=== PATIENT | female | born 1980 | race Caucasian/White ===

== ENCOUNTER 2016-06-23 18:03 | Emergency (ER) | payer OTHER ==
[2016-06-23 18:33] VITALS: BP 108/58; PULSE 96; RESP 18; TEMP 98.3
--- NOTE | 2016-06-23 19:14 | ED ---
Skin/Abscess/FB HPI - General Chief complaint: Skin/Abscess/Foreign Body Stated complaint: abcess Time Seen by Provider: 06/23/16 18:56 Source: patient, RN notes reviewed Mode of arrival: ambulatory Limitations: no limitations - History of Present Illness Initial comments: Patient is a 36-year-old female with tingling of one week of increasing size of her left axilla abscess. Patient reports that she has had them there before. She reports that she has no history of MRSA. She states that usually when she has these they drain and put her on Keflex. Patient states that has became increasingly painful with any movement of her arm. She denies any superficial redness over the armpit. Patient denies any nausea, vomiting, chest pain, shortness of breath, fevers, chills, headaches. - Related Data Home Medications Medication Instructions Recorded Confirmed Pnv with Ca,No.72/Iron/FA 1 tab PO DAILY 03/19/16 03/28/16 [ Plus Tablet] Albuterol Inhaler [Ventolin Hfa 2 puff INHALATION RT-Q6H PRN 03/28/16 03/28/16 Inhaler] Previous Rx's Medication Instructions Recorded Acetaminophen-Codeine 300-30mg 1 tab PO Q4H PRN #15 tablet 06/23/16 [Tylenol #3] Cephalexin [Keflex] 500 mg PO Q6HR #40 cap 06/23/16 Allergies Allergy/AdvReac Type Severity Reaction Status Date / Time No Known Allergies Allergy Verified 06/23/16 18:33 Review of Systems ROS Statement: Those systems with pertinent positive or pertinent negative responses have been documented in the HPI. ROS Other: All systems not noted in ROS Statement are negative. Past Medical History Past Medical History: No Reported History, Pneumonia, Thyroid Disorder History of Any Multi-Drug Resistant Organisms: None Reported Past Surgical History: Section Past Psychological History: ADD/ADHD, Anxiety, Depression, No Psychological Hx Reported Smoking Status: Never smoker Past Alcohol Use History: None Reported Past Drug Use History: Heroin, Marijuana, Methamphetamine, None Reported, Opiates General Exam - General Exam Comments Initial Comments: Pleasant 36-year-old female. No acute distress. Limitations: no limitations General appearance: alert, in no apparent distress Head exam: Present: atraumatic, normocephalic, normal inspection Eye exam: Present: normal appearance, PERRL, EOMI. Absent: scleral icterus, conjunctival injection, periorbital swelling ENT exam: Present: normal exam, mucous membranes moist Neck exam: Present: normal inspection. Absent: tenderness, meningismus, lymphadenopathy Respiratory exam: Present: normal lung sounds bilaterally. Absent: respiratory distress, wheezes, rales, rhonchi, stridor Cardiovascular Exam: Present: regular rate, normal rhythm, normal heart sounds. Absent: systolic murmur, diastolic murmur, rubs, gallop, clicks GI/Abdominal exam: Present: soft, normal bowel sounds. Absent: distended, tenderness, guarding, rebound, rigid Extremities exam: Present: normal inspection, full ROM, normal capillary refill. Absent: tenderness, pedal edema, joint swelling, calf tenderness Back exam: Present: normal inspection Neurological exam: Present: alert, oriented X3, CN II-XII intact Psychiatric exam: Present: normal affect, normal mood Skin exam: Present: warm, dry, intact, normal color, other ( left Axilla abscess. 3 cm.). Absent: rash Course Vital Signs 06/23/16 18:31 Temperature 98.3 F Pulse Rate 96 Respiratory 18 Rate Blood Pressure 108/58 O2 Sat by Pulse 100 Oximetry Procedures - Incision & Drainage Site: upper extremity (Left axilla) Size (cm): 3 Anesthetic Used: benzocaine 0.25% Amount (mLs): 8 I&D Cleaning Method: Betadine Sterile Field Used?: Yes Scalpel Used: #11 I&D Drainage Obtained: Pus, Blood Packing: Iodoform Culture Obtained?: Yes Patient Tolerated Procedure: well, no complications Medical Decision Making - Medical Decision Making Patient is a 36-year-old feel a chief complaint of a left axilla abscess for approximately one week. She's had them in the past before. She states that she 's no history of MRSA and Keflex usually helps ear infections. She states that she cannot see a primary care doctor. Patient abscess was incised and drained and packed with iodoform. Significant amount of pus was obtained and culture was also obtained. Patient will start on Keflex. Patient understands the treatment plan and finish entire antibiotics. Patient will be given pain medication. Patient understands treatment plan will comply. Return parameters were discussed. Disposition Clinical Impression: Abscess of left axilla Disposition: HOME SELF-CARE Condition: Good Instructions: Abscess Incision and Drainage (ED) Additional Instructions: Remove Packing in 48 hours. Return to the emergency department if any alarming signs or symptoms occur. Finished entire antibiotic prescription. Prescriptions: Acetaminophen-Codeine 300-30mg [Tylenol #3] 1 tab PO Q4H PRN #15 tablet PRN Reason: Pain Cephalexin [Keflex] 500 mg PO Q6HR #40 cap Referrals: None,Stated [Primary Care Provider] - 1-2 days Time of Disposition: 19:11
== END 2016-06-23 19:40 | disposition home or self-care (01) ==
LOC: EC 18:03
DX: L02.412 Cutaneous abscess of left axilla (principal); Z79.899 Other long term (current) drug therapy
CPT/HCPCS: 10060; 87070; 87077; 87186; 87205; 99283

== ENCOUNTER 2016-07-10 19:58 | Emergency (ER) | payer OTHER ==
[2016-07-10 20:08] VITALS: RESP 18
--- NOTE | 2016-07-10 20:13 | ED ---
Overdose HPI - General Chief Complaint: Overdose Stated Complaint: Poss Overdose Time Seen by Provider: 07/10/16 19:58 Source: patient, EMS, RN notes reviewed Mode of arrival: EMS Limitations: no limitations - History of Present Illness Initial Comments: This is a 36-year-old female who states she started heroin just prior to admission. Family called EMS fire rescue gave the patient 2 mg of intranasal Narcan. Patient did become combative and did wake up but time she arrived here she was under control. She denies any nausea vomiting fevers chills sweats she states she had been off heroin for about 4 months but did relapse. This was not intentional overdose. MD Complaint: accidental overdose - Related Data Home Medications Medication Instructions Recorded Confirmed No Known Home Medications [No 07/10/16 07/10/16 Known Home Medications] Allergies Allergy/AdvReac Type Severity Reaction Status Date / Time No Known Allergies Allergy Verified 07/10/16 20:16 Review of Systems ROS Statement: Those systems with pertinent positive or pertinent negative responses have been documented in the HPI. ROS Other: All systems not noted in ROS Statement are negative. Past Medical History Past Medical History: No Reported History, Pneumonia, Thyroid Disorder History of Any Multi-Drug Resistant Organisms: MRSA Date of last positivie culture/infection: 06/23/16 MDRO Source:: Axilla Past Surgical History: Section Past Psychological History: ADD/ADHD, Anxiety, Depression, No Psychological Hx Reported Smoking Status: Never smoker Past Alcohol Use History: None Reported Past Drug Use History: Heroin, Marijuana, Methamphetamine, None Reported, Opiates General Exam - General Exam Comments Initial Comments: This is a well-developed well-nourished awake alert oriented 3 female Limitations: no limitations General appearance: alert, in no apparent distress Head exam: Present: atraumatic, normocephalic, normal inspection Eye exam: Present: normal appearance, PERRL, EOMI. Absent: scleral icterus, conjunctival injection, periorbital swelling ENT exam: Present: normal exam, mucous membranes moist Neck exam: Present: normal inspection. Absent: tenderness, meningismus, lymphadenopathy Respiratory exam: Present: normal lung sounds bilaterally. Absent: respiratory distress, wheezes, rales, rhonchi, stridor Cardiovascular Exam: Present: normal rhythm, tachycardia, normal heart sounds. Absent: systolic murmur, diastolic murmur, rubs, gallop, clicks GI/Abdominal exam: Present: soft, normal bowel sounds. Absent: distended, tenderness, guarding, rebound, rigid Extremities exam: Present: normal inspection, full ROM, normal capillary refill. Absent: tenderness, pedal edema, joint swelling, calf tenderness Back exam: Present: normal inspection Neurological exam: Present: alert, oriented X3, CN II-XII intact Psychiatric exam: Present: normal affect, normal mood Skin exam: Present: warm, dry, intact, normal color. Absent: rash Course Vital Signs 07/10/16 07/10/16 07/10/16 20:06 20:18 21:05 Temperature 98.4 F 98.0 F Pulse Rate 135 H 97 105 H Respiratory 18 18 18 Rate Blood Pressure 116/57 116/81 O2 Sat by Pulse 99 99 Oximetry Medical Decision Making - Medical Decision Making I did reveal patient multiple occasions she is awake alert oriented history I did caution her about using heroin future she will be discharged - EKG Data -: EKG Interpreted by Me EKG shows normal: sinus rhythm (Sinus rhythm a rate of 117. Interval 144 QRS duration 90 QT/QTC of 320/[address]-T wave changes) Disposition Clinical Impression: Heroin overdose Disposition: HOME SELF-CARE Condition: Good Instructions: Polysubstance Abuse (ED), Narcotic Abuse (ED)
[2016-07-10] MEDS ORDERED: ACETAMINOPHEN TAB 325 MG TAB PO STA (20:28)
[2016-07-10] MEDS ORDERED: ONDANSETRON 4 MG/2 ML VIAL IVP STA (20:35)
[2016-07-10 21:06] VITALS: BP 116/81; PULSE 105; TEMP 98
== END 2016-07-10 21:13 | disposition home or self-care (01) ==
LOC: EC 19:58
DX: T40.1X1A Poisoning by heroin, accidental (unintentional), initial encounter (principal); Z86.14 Personal history of Methicillin resistant Staphylococcus aureus infection
CPT/HCPCS: 99284; 96374; 93005; J2405

== ENCOUNTER 2017-09-10 16:12 | Emergency (ER) | payer OTHER ==
[2017-09-10 16:18] VITALS: BP 107/59; PULSE 70; RESP 20; TEMP 98
--- NOTE | 2017-09-10 16:39 | ED ---
ENT HPI - General Chief complaint: Dental/Oral Stated complaint: Broken tooth Time Seen by Provider: 09/10/17 16:32 Source: patient Mode of arrival: ambulatory Limitations: no limitations - History of Present Illness Initial comments: 37-year-old female presents with dental pain that's been ongoing for last few days. Patient noticed increased swelling today on the left lower face. Patient states she's had a broken tooth for about a year but is never given her this much problem. Patient hasn't recorded a fever but did feel slight sweats and chills. Patient denies any ear pain or throat pain on that side no difficulty swallowing. Patient has not seen a dentist yet for this issue. MD complaint: tooth pain - Related Data Previous Rx's Medication Instructions Recorded Ibuprofen 600 mg PO Q8HR PRN #30 tablet 09/10/17 Penicillin V Potassium [Pen Vee K] 500 mg PO Q6HR #28 tablet 09/10/17 Allergies Allergy/AdvReac Type Severity Reaction Status Date / Time No Known Allergies Allergy Verified 09/10/17 16:18 Review of Systems ROS Statement: Those systems with pertinent positive or pertinent negative responses have been documented in the HPI. ROS Other: All systems not noted in ROS Statement are negative. Constitutional: Reports: chills. Denies: fever ENT: Reports: dental pain. Denies: ear pain, throat pain Respiratory: Denies: cough Gastrointestinal: Denies: nausea, vomiting Past Medical History Past Medical History: Pneumonia, Thyroid Disorder History of Any Multi-Drug Resistant Organisms: MRSA Date of last positivie culture/infection: 06/23/16 MDRO Source:: Axilla Past Surgical History: Section Past Psychological History: ADD/ADHD, Anxiety, Depression Smoking Status: Never smoker Past Alcohol Use History: None Reported Past Drug Use History: Heroin, Marijuana, Methamphetamine, None Reported, Opiates General Exam Limitations: no limitations General appearance: alert, in no apparent distress Head exam: Present: atraumatic, normocephalic, normal inspection Eye exam: Present: normal appearance, PERRL, EOMI. Absent: scleral icterus, conjunctival injection, periorbital swelling Pupils: Present: normal accommodation ENT exam: Present: mucous membranes moist, other (swollen, tender to left lower jaw/face, + broken tooth #20, tender ) Course Vital Signs 09/10/17 16:16 Temperature 98.0 F Pulse Rate 70 Respiratory 20 Rate Blood Pressure 107/59 O2 Sat by Pulse 99 Oximetry Medical Decision Making - Medical Decision Making She will need an oral antibiotic and to follow up with dental specialist. Patient aware to also take prescribed Motrin for pain and swelling as well. Patient have close follow-up with dentist or oral surgeon. If not improving or worsen patient to return to the ER for further evaluation and treatment. Patient to finish her antibiotics Disposition Clinical Impression: Dental abscess, Toothache, Facial swelling Disposition: HOME SELF-CARE Condition: Good Instructions: Dental Abscess (ED), Toothache (ED) Prescriptions: Ibuprofen 600 mg PO Q8HR PRN #30 tablet PRN Reason: Pain Penicillin V Potassium [Pen Vee K] 500 mg PO Q6HR #28 tablet Is patient prescribed a controlled substance at d/c from ED?: No Referrals: None,Stated [Primary Care Provider] - 1-2 days Umair Almonte DDS [STAFF PHYSICIAN] - 1-2 days Time of Disposition: 16:38
== END 2017-09-10 17:00 | disposition home or self-care (01) ==
LOC: EC 16:12
DX: K04.7 Periapical abscess without sinus (principal); S02.5XXA Fracture of tooth (traumatic), initial encounter for closed fracture; Z86.14 Personal history of Methicillin resistant Staphylococcus aureus infection
CPT/HCPCS: 99282

== ENCOUNTER → 2018-01-18 | Outpatient (CLI) | payer OTHER ==
[2018-01-18 17:52] LABS: Basophils % (A) 0 %; Eosinophils # (A) 0.1 k/uL (0-0.7); Eosinophils % (A) 2 %; HCT 39.7 % (34.0-46.0); HGB 12.7 gm/dL (11.4-16.0); Lymphocytes # (A) 1.4 k/uL (1.0-4.8); Lymphocytes % (A) 26 %; MCH 29.5 pg (25.0-35.0); MCV 91.9 fL (80.0-100.0); Mean Platelet Volume 8.9; Monocytes # (A) 0.3 k/uL (0-1.0); Monocytes % (A) 5 %; Neutrophils # (A) 3.6 k/uL (1.3-7.7); Neutrophils % (A) 65 %; Platelet Count 161 k/uL (150-450); RBC 4.32 m/uL (3.80-5.40); RDW 13.3 % (11.5-15.5); WBC 5.6 k/uL (3.8-10.6)
[2018-01-18 18:48] LABS: Albumin 4.1 g/dL (3.5-5.0); Bilirubin, Delta 0.2 mg/dL (0.0-0.2); Bilirubin,Unconjugated 0.4 mg/dL (0.0-1.1); Total Bilirubin 0.6 mg/dL (0.2-1.3); Total Protein 7.5 g/dL (6.3-8.2)
[2018-01-19 04:22] LABS: Hepatitis A Antibody IgM Non-Reactive (Non-Reactive); Hepatitis B Core IgM Non-Reactive (Non-Reactive)
== END | disposition home or self-care (01) ==
LOC: LABWHC1 16:12
PROVIDERS: ATTEND Physician Assistant
DX: B18.2 Chronic viral hepatitis C (principal); Z20.5 Contact with and (suspected) exposure to viral hepatitis
CPT/HCPCS: 36415; 80074; 80076; 85025; 87522

== ENCOUNTER → 2018-06-27 | Outpatient (CLI) | payer OTHER ==
[2018-06-27 17:32] LABS: Basophils % (A) 0 %; Eosinophils # (A) 0.1 k/uL (0-0.7); Eosinophils % (A) 2 %; HCT 39.7 % (34.0-46.0); HGB 12.4 gm/dL (11.4-16.0); Lymphocytes # (A) 1.6 k/uL (1.0-4.8); Lymphocytes % (A) 31 %; MCH 28.8 pg (25.0-35.0); MCHC 31.3 g/dL (31.0-37.0); MCV 91.9 fL (80.0-100.0); Mean Platelet Volume 8.8; Monocytes # (A) 0.2 k/uL (0-1.0); Monocytes % (A) 4 %; Neutrophils # (A) 3.2 k/uL (1.3-7.7); Neutrophils % (A) 61 %; Platelet Count 198 k/uL (150-450); RBC 4.32 m/uL (3.80-5.40); RDW 13.5 % (11.5-15.5); WBC 5.3 k/uL (3.8-10.6)
[2018-06-27 17:39] LABS: Prothrombin Time 10.8 sec (9.0-12.0)
[2018-06-28 02:04] LABS: Albumin 4.3 g/dL (3.80-4.90); Albumin/Globulin Ratio 1.72 (1.60-3.17); Bilirubin, Conjugated 0.2 mg/dL (0.20-0.40); Bilirubin,Unconjugated 0.5 mg/dL; Globulin 2.5 g/dL (1.6-3.3); Total Bilirubin 0.7 mg/dL (0.2-1.2); Total Protein 6.8 g/dL (6.2-8.2)
[2018-06-28 15:21] LABS: Hepatits C Virus RNA Not detected (Not detected); Hepatits C Virus RNA, Quant <12 IU/mL (<12); LOG HCV IU/mL <1.08 (<1.08)
== END | disposition home or self-care (01) ==
LOC: LABWHC1 17:13
PROVIDERS: ATTEND Physician Assistant
DX: B18.2 Chronic viral hepatitis C (principal)
CPT/HCPCS: 36415; 80076; 85025; 85610; 87522

== ENCOUNTER → 2020-07-22 | Outpatient (CLI) | payer OTHER | END | disposition home or self-care (01) | LOC: LABWHC1 15:36 | PROVIDERS: ATTEND Family Medicine | DX: Z20.822 Contact with and (suspected) exposure to COVID-19 (principal) | CPT/HCPCS: U0003; C9803 ==

== ENCOUNTER → 2020-08-25 | Outpatient (CLI) | payer BC, OTHER | END | disposition home or self-care (01) | LOC: LABWHC1 08:31 | PROVIDERS: ATTEND Nurse Practitioner | DX: U07.1 COVID-19 (principal) | CPT/HCPCS: U0003; C9803; U0005 ==

== ENCOUNTER 2021-03-27 18:48 | Emergency (ER) | payer OTHER ==
[2021-03-27] MEDS ORDERED: LORazepam 2 MG/ML INJ IM STA (19:03)
[2021-03-27] MEDS ORDERED: LORazepam 2 MG/ML INJ IV STA ×3 (19:03→22:37)
[2021-03-27] MEDS ORDERED: KETAMINE 50 MG/ML 10 ML VIAL IM ONE (19:23)
[2021-03-27] MEDS ORDERED: SODIUM CHLORIDE 0.9% 1,000 ML IV STA ×2 (19:38→21:52)
--- NOTE | 2021-03-27 20:00 | ED ---
General Adult HPI - General Source: police, EMS, RN notes reviewed Mode of arrival: EMS Limitations: no limitations <Araceli Loco - Last Filed: 03/28/21 00:17> <Chintan Jang - Last Filed: 03/28/21 10:47> <Jeramie Malloy - Last Filed: 03/29/21 02:24> - General Chief complaint: Overdose Stated complaint: Overdose Time Seen by Provider: 03/27/21 19:02 - History of Present Illness Initial comments: 40-year-old female presents to the emergency department via EMS from home for evaluation of erratic behavior. Per [employer] at bedside, patient's significant other called EMS due to her erratic behavior occurring 2 hours after ingesting half of a large chocolate bar containing 200 mg THC. Upon arrival, patient is unable to answer questions or cooperate. [employer] remains present to assist. They state there was no known trauma or injury prior to arrival. (Araceli Loco) - Related Data Home Medications Medication Instructions Recorded Confirmed Albuterol Sulfate [Proair Hfa] 2 puff INHALATION RT-QID PRN 03/27/21 03/27/21 QUEtiapine [SEROquel] 50 mg PO HS 03/27/21 03/27/21 Venlafaxine HCl ER [Effexor Xr] 37.5 mg PO DAILY 03/27/21 03/27/21 Allergies Allergy/AdvReac Type Severity Reaction Status Date / Time No Known Allergies Allergy Verified 03/27/21 22:36 Review of Systems ROS Other: All systems not noted in ROS Statement are negative. <Araceli Loco - Last Filed: 03/28/21 00:17> ROS Other: All systems not noted in ROS Statement are negative. <Chintan Jang - Last Filed: 03/28/21 10:47> ROS Other: All systems not noted in ROS Statement are negative. <Jeramie aMlloy - Last Filed: 03/29/21 02:24> ROS Statement: Those systems with pertinent positive or pertinent negative responses have been documented in the HPI. Past Medical History Past Medical History: Pneumonia, Thyroid Disorder History of Any Multi-Drug Resistant Organisms: MRSA Date of last positivie culture/infection: 3/16/17 MDRO Source:: [place] Past Surgical History: Section Past Psychological History: ADD/ADHD, Anxiety, Depression Smoking Status: Never smoker Past Alcohol Use History: None Reported Past Drug Use History: Heroin, Marijuana, Methamphetamine, None Reported, Opiates <Araceli Loco - Last Filed: 03/28/21 00:17> General Exam Limitations: altered mental status General appearance: alert, appears intoxicated, other (This is a 40-year-old female who presents to the emergency department awake and alert, but unable to answer any questions) Head exam: Present: atraumatic, normocephalic, normal inspection Eye exam: Present: normal appearance, PERRL. Absent: scleral icterus, conjunctival injection, periorbital swelling ENT exam: Present: mucous membranes moist Respiratory exam: Present: normal lung sounds bilaterally. Absent: respiratory distress, wheezes, rales, rhonchi, stridor Cardiovascular Exam: Present: regular rate, tachycardia, normal heart sounds GI/Abdominal exam: Present: soft, normal bowel sounds. Absent: distended, rigid Extremities exam: Present: other (evidence of contusions in various stages of healing noted to bilateral forearms concerning for injection sites) Expanded Neurological exam: Present: protecting the airway Patient oriented to: Present: person. Absent: place, time Speech: Present: fluid speech Eye Response: (4) open spontaneously Motor Response: (5) localizes to pain Verbal Response: (4) confused conversation [place]roberts Total: 13 (patient will sporadically follow commands, though not consistently) Psychiatric exam: Present: agitated Skin exam: Present: warm, intact (skin is flushed), other <Araceli Loco - Last Filed: 03/28/21 00:17> Course <Araceli Loco - Last Filed: 03/28/21 00:17> Vital Signs 03/27/21 03/27/21 03/28/21 19:21 20:22 01:47 Temperature 98.1 F Pulse Rate 94 126 H 104 H Respiratory 22 20 14 Rate Blood Pressure 118/65 124/81 95/56 O2 Sat by Pulse 93 L 97 99 Oximetry 03/28/21 03/28/21 03/28/21 04:31 08:09 10:04 Temperature 98.1 F Pulse Rate 97 90 93 Respiratory 18 18 14 Rate Blood Pressure 98/51 99/47 98/45 O2 Sat by Pulse 98 97 98 Oximetry 03/28/21 11:06 Temperature 98.1 F Pulse Rate 93 Respiratory 14 Rate Blood Pressure 98/45 O2 Sat by Pulse 98 Oximetry - Reevaluation(s) Reevaluation #1: 03/27/21 19:07 Unable to assess patient or obtain history due to erratic behavior and difficulty following commands. Home medications include Flexeril and Effexor as provided per [employer]. 03/27/21 19:30 260 mg of ketamine given IM under the supervision of Dr. Ramirez at bedside. 03/27/21 23:12 Patient appears to be resting calmly at this time. Sitter remains at bedside. Vital signs are stable. 03/28/21 00:00 Patient continues to have episodes in which she becomes agitated and thrashes around in the bed. She is unable to follow commands or be redirected. She is observed pulling at IV line, Ramos catheter, and quality assurance monitor therefore soft limb restraints will be ordered as medically necessary. 03/28/21 00:30 (Araceli Loco) EKG Findings - EKG Comments: EKG Findings:: EKG is sinus tachycardia 137 IN 166 QRS 74 QTc 413 <Jeramie Malloy - Last Filed: 03/29/21 02:24> Medical Decision Making - Lab Data Result diagrams: 03/27/21 20:00 03/27/21 20:00 - EKG Data EKG shows normal: sinus rhythm Rate: tachycardia - Radiology Data Radiology results: report reviewed, image reviewed <Araceli Loco - Last Filed: 03/28/21 00:17> - Lab Data Result diagrams: 03/27/21 20:00 03/27/21 20:00 <Chintan Jang - Last Filed: 03/28/21 10:47> - Lab Data Result diagrams: 03/27/21 20:00 03/27/21 20:00 <Jeramie Malloy - Last Filed: 03/29/21 02:24> - Medical Decision Making This is a 40-year-old female who presents to the emergency department via EMS accompanied by [employer] for evaluation of erratic behavior. Per EMS, patient's behavior began a couple hours after ingesting half of the chocolate bar with 200 mg of THC. The patient's significant other called EMS. Upon arrival, patient is thrashing about in the bed requiring the assistance of several individuals. Patient is aware that she is acting erratically, however states she is unable to calm herself or control her behavior. Prior to arrival patient was given Versed via EMS with no change. Patient given Ativan, ketamine, and Benadryl while present in the emergency department. She was hydrated with 2 L of IV fluids. Soft restraints were required to keep patient safe from harm. Laboratory studies were reviewed. CK is elevated at 488. Urinalysis significant for WBCs and leukocyte esterase along with trace blood. Drug screen is positive for TCA, amphetamines, methamphetamines, and THC. Chest x-ray was obtained and shows mild pulmonary interstitial edema. Patient will remain in the emergency department for further evaluation and treatment. This patient's care was assumed by my attending Dr. Malloy. ([facility]) - Lab Data Lab Results 03/27/21 03/27/21 03/27/21 Range/Units 20:00 20:00 20:00 WBC 10.9 H (3.8-10.6) k/uL RBC 3.95 (3.80-5.40) m/uL Hgb 12.1 (11.4-16.0) gm/dL Hct 35.0 (34.0-46.0) % MCV 88.6 (80.0-100.0) fL MCH 30.7 (25.0-35.0) pg MCHC 34.6 (31.0-37.0) g/dL RDW 12.6 (11.5-15.5) % Plt Count 190 (150-450) k/uL MPV 9.8 Neutrophils % 81 % Lymphocytes % 12 % Monocytes % 4 % Eosinophils % 1 % Basophils % 0 % Neutrophils # 8.8 H (1.3-7.7) k/uL Lymphocytes # 1.3 (1.0-4.8) k/uL Monocytes # 0.5 (0-1.0) k/uL Eosinophils # 0.1 (0-0.7) k/uL Basophils # 0.0 (0-0.2) k/uL Sodium 137 (137-145) mmol/L Potassium 4.3 (3.5-5.1) mmol/L Chloride 105 (98-107) mmol/L Carbon Dioxide 20 L (22-30) mmol/L Anion Gap 12 mmol/L BUN 15 (7-17) mg/dL Creatinine 0.95 (0.52-1.04) mg/dL Est GFR (CKD-EPI)AfAm 88 (>60 ml/min/1.73 sqM) Est GFR (CKD-EPI)NonAf 77 (>60 ml/min/1.73 sqM) Glucose 76 (74-99) mg/dL Calcium 9.0 (8.4-10.2) mg/dL Total Bilirubin 0.7 (0.2-1.3) mg/dL AST 32 (14-36) U/L ALT 13 (4-34) U/L Alkaline Phosphatase 60 (38-126) U/L Creatine Kinase 488 H (30-135) U/L Troponin I (0.000-0.034) ng/mL Total Protein 7.2 (6.3-8.2) g/dL Albumin 4.4 (3.5-5.0) g/dL Urine Color Urine Appearance (Clear) Urine pH (5.0-8.0) Ur Specific Buras (1.001-1.035) Urine Protein (Negative) Urine Glucose (UA) (Negative) Urine Ketones (Negative) Urine Blood (Negative) Urine Nitrite (Negative) Urine Bilirubin (Negative) Urine Urobilinogen (<2.0) mg/dL Ur Leukocyte Esterase (Negative) Urine RBC (0-5) /hpf Urine WBC (0-5) /hpf Ur Squamous Epith Cells (0-4) /hpf Amorphous Sediment (None) /hpf Urine Bacteria (None) /hpf Hyaline Casts (0-2) /lpf Urine Mucus (None) /hpf Urine HCG, Qual (Not Detectd) Salicylates <1.0 mg/dL Urine Opiates Screen Not Detected (NotDetected) Ur Oxycodone Screen Not Detected (NotDetected) Urine Methadone Screen Not Detected (NotDetected) Ur Propoxyphene Screen Not Detected (NotDetected) Acetaminophen <10.0 ug/mL Ur Barbiturates Screen Not Detected (NotDetected) U Tricyclic Antidepress Detected H (NotDetected) Ur Phencyclidine Scrn Not Detected (NotDetected) Ur Amphetamines Screen Detected H (NotDetected) U Methamphetamines Scrn Detected H (NotDetected) U Benzodiazepines Scrn Not Detected (NotDetected) Urine Cocaine Screen Not Detected (NotDetected) U Marijuana (THC) Screen Detected H (NotDetected) Serum Alcohol <10 mg/dL 03/27/21 03/27/21 03/27/21 Range/Units 20:00 20:00 20:00 WBC (3.8-10.6) k/uL RBC (3.80-5.40) m/uL Hgb (11.4-16.0) gm/dL Hct (34.0-46.0) % MCV (80.0-100.0) fL MCH (25.0-35.0) pg MCHC (31.0-37.0) g/dL RDW (11.5-15.5) % Plt Count (150-450) k/uL MPV Neutrophils % % Lymphocytes % % Monocytes % % Eosinophils % % Basophils % % Neutrophils # (1.3-7.7) k/uL Lymphocytes # (1.0-4.8) k/uL Monocytes # (0-1.0) k/uL Eosinophils # (0-0.7) k/uL Basophils # (0-0.2) k/uL Sodium (137-145) mmol/L Potassium (3.5-5.1) mmol/L Chloride (98-107) mmol/L Carbon Dioxide (22-30) mmol/L Anion Gap mmol/L BUN (7-17) mg/dL Creatinine (0.52-1.04) mg/dL Est GFR (CKD-EPI)AfAm (>60 ml/min/1.73 sqM) Est GFR (CKD-EPI)NonAf (>60 ml/min/1.73 sqM) Glucose (74-99) mg/dL Calcium (8.4-10.2) mg/dL Total Bilirubin (0.2-1.3) mg/dL AST (14-36) U/L ALT (4-34) U/L Alkaline Phosphatase (38-126) U/L Creatine Kinase (30-135) U/L Troponin I <0.012 (0.000-0.034) ng/mL Total Protein (6.3-8.2) g/dL Albumin (3.5-5.0) g/dL Urine Color Yellow Urine Appearance Cloudy H (Clear) Urine pH 6.0 (5.0-8.0) Ur Specific [place] 1.025 (1.001-1.035) Urine Protein 1+ H (Negative) Urine Glucose (UA) Negative (Negative) Urine Ketones Negative (Negative) Urine Blood Trace H (Negative) Urine Nitrite Negative (Negative) Urine Bilirubin Negative (Negative) Urine Urobilinogen <2.0 (<2.0) mg/dL Ur Leukocyte Esterase Large H (Negative) Urine RBC 18 H (0-5) /hpf Urine WBC 65 H (0-5) /hpf Ur Squamous Epith Cells 25 H (0-4) /hpf Amorphous Sediment Rare H (None) /hpf Urine Bacteria Occasional H (None) /hpf Hyaline Casts 2 (0-2) /lpf Urine Mucus Many H (None) /hpf Urine HCG, Qual Not Detected (Not Detectd) Salicylates mg/dL Urine Opiates Screen (NotDetected) Ur Oxycodone Screen (NotDetected) Urine Methadone Screen (NotDetected) Ur Propoxyphene Screen (NotDetected) Acetaminophen ug/mL Ur Barbiturates Screen (NotDetected) U Tricyclic Antidepress (NotDetected) Ur Phencyclidine Scrn (NotDetected) Ur Amphetamines Screen (NotDetected) U Methamphetamines Scrn (NotDetected) U Benzodiazepines Scrn (NotDetected) Urine Cocaine Screen (NotDetected) U Marijuana (THC) Screen (NotDetected) Serum Alcohol mg/dL - EKG Data EKG Comments: EKG was obtained at 1938 and shows ventricular rate 137, IN interval 166, QRS duration 74, QT/QTC 274/413. Sinus tachycardia with occasional PVCs. Nonspecific ST and T wave abnormality. (Araceli Loco) - Radiology Data Chest x-ray was obtained and shows mild pulmonary interstitial edema which is new compared to old exam. (Araceli Loco) Disposition <Araceli Loco - Last Filed: 03/28/21 00:17> <Chintan Jang - Last Filed: 03/28/21 10:47> Is patient prescribed a controlled substance at d/c from ED?: No <Jeramie Malloy - Last Filed: 03/29/21 02:24> Clinical Impression: Agitation Disposition: HOME SELF-CARE Condition: Fair Instructions (If sedation given, give patient instructions): Methamphetamine Abuse (ED) Referrals: Estefani Ruelas NPC [Primary Care Provider] - 1-2 days
[2021-03-27] MEDS ORDERED: diphenhydrAMINE 50 MG/ML 1 ML VIAL IVP STA ×2 (20:03→20:23)
[2021-03-27 20:20] LABS: Amorphous Sediment,Urine Rare /hpf; Appearance,Urine Cloudy (Clear); Bacteria,Urine Occasional /hpf; Bilirubin,Urine Negative (Negative); Blood,Urine Trace (Negative); Color,Urine Yellow; Glucose,Urine (UA) Negative (Negative); Hyaline Casts,Urine 2 /lpf (0-2); Ketones,Urine Negative (Negative); Leukocyte Esterase,Urine Large (Negative); Mucus,Urine Many /hpf; Nitrite,Urine Negative (Negative); Protein,Urine 1+ (Negative); RBC,Urine 18 /hpf (0-5); Specific Gravity,Urine 1.025 (1.001-1.035); Squamous Epithelial Cell,Urine 25 /hpf (0-4); Urobilinogen,Urine <2.0 mg/dL (<2.0); WBC,Urine 65 /hpf (0-5)
[2021-03-27 20:21] LABS: ALT 13 U/L (4-34); AST 32 U/L (14-36); Acetaminophen <10.0 ug/mL; African American GFR (CKD) 88 (>60 ml/min/1.73 sqM); Albumin 4.4 g/dL (3.5-5.0); Alcohol <10 mg/dL; Alkaline Phosphatase 60 U/L (38-126); Anion Gap 12 mmol/L; Blood Urea Nitrogen 15 mg/dL (7-17); Carbon Dioxide 20 mmol/L (22-30); Chloride 105 mmol/L (98-107); Creatine Kinase 488 U/L (30-135); Glucose 76 mg/dL (74-99); Non-African American GFR(CKD) 77 (>60 ml/min/1.73 sqM); Potassium 4.3 mmol/L (3.5-5.1); Salicylate <1.0 mg/dL; Sodium 137 mmol/L (137-145); Total Bilirubin 0.7 mg/dL (0.2-1.3); Total Protein 7.2 g/dL (6.3-8.2)
[2021-03-27 20:22] VITALS: TEMP 98.1
[2021-03-27 20:26] LABS: Basophils % (A) 0 %; Eosinophils # (A) 0.1 k/uL (0-0.7); Eosinophils % (A) 1 %; HGB 12.1 gm/dL (11.4-16.0); Lymphocytes # (A) 1.3 k/uL (1.0-4.8); Lymphocytes % (A) 12 %; MCH 30.7 pg (25.0-35.0); MCHC 34.6 g/dL (31.0-37.0); MCV 88.6 fL (80.0-100.0); Mean Platelet Volume 9.8; Monocytes # (A) 0.5 k/uL (0-1.0); Monocytes % (A) 4 %; Neutrophils # (A) 8.8 k/uL (1.3-7.7); Neutrophils % (A) 81 %; Platelet Count 190 k/uL (150-450); RBC 3.95 m/uL (3.80-5.40); RDW 12.6 % (11.5-15.5); WBC 10.9 k/uL (3.8-10.6)
[2021-03-27 20:47] LABS: Amphetamine Screen,Urine Detected (NotDetected); Barbiturate Screen,Urine Not Detected (NotDetected); Benzodiazepines Screen,Urine Not Detected (NotDetected); Cocaine Screen,Urine Not Detected (NotDetected); Methadone Screen, Urine Not Detected (NotDetected); Opiate Screen,Urine Not Detected (NotDetected); Oxycodone Screen, Urine Not Detected (NotDetected); Phencyclidine Screen,Urine Not Detected (NotDetected); Tricyclic Antidepressant,Urine Detected (NotDetected); Urn Cannabinoid Scrn Detected (NotDetected)
--- NOTE | 2021-03-27 21:45 | XR ---
EXAMINATION TYPE: XR chest 1V portable DATE OF EXAM: 03/27/2021 COMPARISON: 03/19/2016 HISTORY: Overdose. TECHNIQUE: Single view FINDINGS: Heart and mediastinum are normal. There is some mild interstitial edema that is more on the left side. There is no pulmonary consolidation. There is no pleural effusion. There are no hilar mas ses. There are chest leads. IMPRESSION: There is some mild pulmonary interstitial edema which is new compared to old exam.
[2021-03-27] MEDS ORDERED: cefTRIAXone IN SWFI 1,000 MG/10 ML SYRINGE IVP STA (21:53)
[2021-03-28] MEDS ORDERED: HALOPERIDOL LACTATE 5 MG/ML 1 ML VIAL IM STA (03:41)
[2021-03-28 10:05] VITALS: BP 98/45; PULSE 93; RESP 14
== END 2021-03-28 11:07 | disposition home or self-care (01) ==
LOC: EC 18:48
DX: R45.1 Restlessness and agitation (principal); F32.A Depression, unspecified; F41.9 Anxiety disorder, unspecified; Z79.899 Other long term (current) drug therapy; F12.90 Cannabis use, unspecified, uncomplicated; F15.90 Other stimulant use, unspecified, uncomplicated; F11.90 Opioid use, unspecified, uncomplicated; F14.90 Cocaine use, unspecified, uncomplicated
CPT/HCPCS: 36415; 93005; 80053; 82550; 84484; 85025; 81001; 81025; 80306; 80143; 87086; 80179; 71045; 96374; 96375 ×2; 96376 ×2; 96361 ×5; 96372 ×3; 99285; G0480; J2060; J1200; J1630; J0696; 80320